=== PATIENT | male | born 1995 | race Hispanic/Latino ===

== ENCOUNTER 2019-05-19 21:32 | Emergency (ER) | payer SELFPAY | END 2019-05-19 22:05 | disposition home or self-care (01) | LOC: EDH 21:32 | DX: R07.89 Other chest pain (principal); R11.0 Nausea; R06.02 Shortness of breath; I10 Essential (primary) hypertension; Z90.49 Acquired absence of other specified parts of digestive tract | CPT/HCPCS: 93005 ==